=== PATIENT | male | born 1985 | race Caucasian/White ===

== ENCOUNTER 2021-07-21 15:49 | Emergency (ER) | payer BC | END 2021-07-21 17:21 | disposition home or self-care (01) | LOC: MW.ED 15:49 | DX: S59.901A Unspecified injury of right elbow, initial encounter (principal); Z88.0 Allergy status to penicillin; Z72.0 Tobacco use; X50.0XXA Overexertion from strenuous movement or load, initial encounter | CPT/HCPCS: 73030-26-RT; 73030-RT; 73080-26-RT; 73080-RT; 99283 ==

== ENCOUNTER 2021-08-03 06:09 | Day surgery (SDC) | payer BC ==
[~2021-08-03 06:09] MED LIST: Lactated Ringers 1,000 ML IV SCH
[2021-08-03] MEDS ORDERED: Lidocaine 1% with EPINEPHrine 1:100,000 20 ML MDV ONE ×2 (07:17→09:56)
[2021-08-03] MEDS ORDERED: Bupivacaine 25%/EPINEPHrine/PF 0 ML ONE (07:18)
[2021-08-03] MEDS ORDERED: Naloxone 0.4 MG/ML SDV IVPUSH PRN (07:30)
[2021-08-03] MEDS ORDERED: Metoclopramide 10 MG/2 ML SDV IVPUSH PRN (07:30)
[2021-08-03] MEDS ORDERED: Ondansetron 4 MG/2 ML SDV IVPUSH PRN (07:30)
[2021-08-03] MEDS ORDERED: HYDROmorphone 1 MG/ML Syringe IVPUSH PRN (07:30)
[2021-08-03] MEDS ORDERED: fentaNYL 100 MCG/2 ML SDV IVPUSH PRN (07:30)
[2021-08-03] MEDS ORDERED: Albuterol 0.083% 2.5 MG/3 ML Neb Soln NEB PRN (07:30)
[2021-08-03] MEDS ORDERED: Propofol 200 MG/20 ML SDV ONE ×2 (07:31→07:50)
[2021-08-03] MEDS ORDERED: fentaNYL 250 MCG/5 ML SDV ONE ×2 (07:31→08:06)
[2021-08-03] MEDS ORDERED: Ropivacaine 0.5% 5 MG/ML 30 ML SDV ONE (07:36)
[2021-08-03] MEDS ORDERED: Clindamycin Phosphate in D5W 900 MG in Premix Bag 1 BAG IV SCH ×2 (08:00)
[2021-08-03] MEDS ORDERED: Ketamine HCL/NACL, ISO-OSM 50 MG/5 ML Syringe ONE (08:13)
[2021-08-03] MEDS ORDERED: Dexamethasone 4 MG/ML 5 ML MDV ONE (08:26)
[2021-08-03] MEDS ORDERED: Ondansetron 4 MG/2 ML SDV ONE (08:26)
[2021-08-03] MEDS ORDERED: Ketorolac 30 MG/ML SDV ONE (08:26)
[2021-08-03] MEDS ORDERED: Octyl 2-Cyanoacrylate 1 Tube ONE (09:00)
[2021-08-03] MEDS ORDERED: Acetaminophen/oxyCODONE 325-5 MG Tab PO PRN (10:04)
[2021-08-03] MEDS ORDERED: ePHEDrine 50 MG/ML SDV ONE (12:09)
== END 2021-08-03 10:16 | disposition home or self-care (01) ==
LOC: MW.SDS 06:09
PROVIDERS: ATTEND Orthopaedic Surgery
DX: S46.211A Strain of muscle, fascia and tendon of other parts of biceps, right arm, initial encounter (principal); Z88.0 Allergy status to penicillin; F17.210 Nicotine dependence, cigarettes, uncomplicated; X58.XXXA Exposure to other specified factors, initial encounter
CPT/HCPCS: 24342; 76000; A9270; C1776; J0131; J1100; J1885; J2405; J2704; J2795; J3010; J3490; J7120; 01716; J0690